=== PATIENT | female | born 1990 | race African-American/Black ===

== ENCOUNTER 2017-01-27 04:41 | Emergency (ER) | payer OTHER ==
[~2017-01-27] VITALS: Ht 165.1 cm; Wt 71.7 kg
--- NOTE | ~2017-01-27 | EKG ---
PATIENT: PEDRO PABLO MONTGOMERY UNIT #: [id number] Ventricular Rate: 72 BPM Atrial Rate: 72 BPM P-R Interval: 162 ms QRS Duration: 78 ms Q-T Interval: 366 ms QTC Calculation(Bezet): 400 ms P [place]: 77 degrees Calculated R [place]: 81 degrees Calculated T [place]: 75 degrees Diagnosis Line: Normal sinus rhythm with sinus arrhythmia Diagnosis Line: Normal ECG Diagnosis Line: No previous ECGs available Diagnosis Line: Confirmed by OBEY MANCINI MD ([id number]) on Diagnosis Line: 01/28/2017 7:31:19 AM INTERPRETING MD: ADDIS SURESH
--- NOTE | ~2017-01-27 | CT16 ---
[facility] A Service of [facility] RADIOLOGY TEXT RESULTS PATIENT: PEDRO PABLO MONTGOMERY LOCATION: [facility] : [birth year] UNIT #: [id number] AGE: [address]: Chance Daniel MD SEX: F ORDER DR: [id number] [facility] [address] [place], [place] [address] [id number] E MR#: [id number] Acc #: [id number] NAME: PEDRO PABLO MONTGOMERY : 1990 SEX: F STUDY DATE/TIME: 01/27/2017 7:59 UNIT: [facility] ROOM: STUDY DESCRIPTION: CT Angio Chest for PE Attending Physician: Chance Daniel M.D. Ordering Physician: Chance Daniel M.D. Primary Care Physician: No Primary Care Physician MEDICAL IMAGING REPORT This report is preliminary unless electronic signature is present EXAM Chest CTA, 01/27/17 INDICATIONS Chest pain and shortness of air that started today. TECHNIQUE Axial images were obtained through the chest following IV contrast administration. 3-D reformats were obtained. No comparison. This CT exam was performed with one or more of the following radiation dose reduction techniques: automatic exposure control, adjustment of mA and/or kV according to patient size, and iterative reconstruction. FINDINGS There is no pulmonary embolism or aortic dissection. No pleural or pericardial effusion. No adenopathy. The lungs are clear. Upper abdomen is unremarkable. IMPRESSION No pulmonary embolism or aortic dissection. Normal chest CT. Dictated by... Andrew Badillo Jr., M.D. THIS IS AN ELECTRONICALLY VERIFIED REPORT Andrew Badillo Jr., M.D. at 01/27/2017 5:05 PM WALTER/rachel TD: 01/27/2017 14:05 JOB #: [id number] [facility] A [facility] of [facility] RADIOLOGY TEXT RESULTS PATIENT: PEDRO PABLO MONTGOMERY LOCATION: [facility] : [birth year] UNIT #: [id number] AGE: [address]: Chance Daniel MD SEX: F ORDER DR: MEDICAL IMAGING REPORT Page 1 of 1 COPY
--- NOTE | ~2017-01-27 | CR72 ---
[facility] A Service of [facility] RADIOLOGY TEXT RESULTS PATIENT: PEDRO PABLO MONTGOMERY LOCATION: [facility] : [birth year] UNIT #: [id number] AGE: [address]: Chance Daniel MD SEX: F ORDER DR: [id number] [facility] [address] [place], [place] [address] [id number] E MR#: [id number] Acc #: [id number] NAME: PEDRO PABLO MONTGOMERY : 1990 SEX: F STUDY DATE/TIME: 01/27/2017 5:51 UNIT: [facility] ROOM: STUDY DESCRIPTION: CR Chest Single View Portable Attending Physician: Chance Daniel M.D. Ordering Physician: Cynthia Corado A.P.R.N. Primary Care Physician: No Primary Care Physician MEDICAL IMAGING REPORT This report is preliminary unless electronic signature is present EXAM Portable chest, 01/27/2017. HISTORY Chest pain and short of breath for a week. FINDINGS Portable view of the chest was obtained. The heart size and vascularity are normal, and the lungs are clear. The bones are unremarkable. IMPRESSION No active disease. Dictated by... Phillip Hallman M.D. THIS IS AN ELECTRONICALLY VERIFIED REPORT Phillip Hallman M.D. at 01/27/2017 2:14 PM SANDRA/geri TD: 01/27/2017 12:21 JOB #: [id number] MEDICAL IMAGING REPORT Page 1 of 1 COPY
[~2017-01-27 04:41] MED LIST: BACTRIM DS TABL1 TA1 PO; PYRIDIUM PO
[2017-01-27 05:44] LABS: BASOPHIL% 0.4 % (0-2.5); DIFF IND NO; EOSINOPHIL% 0.5 % (0.0-7.0); HEMATOCRIT 38.6 % (35.0-45.0); HEMOGLOBIN 12.8 gm/dL (12.0-16.0); LYMPHOCYTE# 3.9 X10e3 (1.0-3.5); LYMPHOCYTE% 48.4 % (17.0-45.0); MEAN CELL VOLUME 74.9 FL (83-96); MEAN CORPUSCULAR HEMOGLOBIN 24.8 PG (28-34); MEAN CORPUSCULAR HGB CONC 33.1 g/dL (30-36); MEAN PLATELET VOLUME 8.7 FL (6.5-11.5); MONOCYTE# 0.6 X10e3 (0-1.0); MONOCYTE% 6.9 % (3.0-12.0); NEUTROPHIL# 3.5 X10e3 (1.5-7.1); NEUTROPHIL% 43.8 % (40-75); PLATELET COUNT 273 X10e3 (140-420); RED BLOOD COUNT 5.15 X10e (3.90-5.30); RED CELL DISTRIBUTION WIDTH 13.5 % (11.0-15.5)
[2017-01-27 05:54] LABS: POC - CKMB <1.0 ng/mL (0.0-7.9); POC - TROPONIN <0.05 ng/mL (<=0.05)
[2017-01-27 05:58] LABS: PROTHROMBIN TIME (PATIENT) 10.8 SECONDS (10.0-11.7)
[2017-01-27 06:03] LABS: AMPHETAMINE NEG (NEG); BARBITURATES NEG (NEG); BENZODIAZEPINES NEG (NEG); COCAINE NEG (NEG); MARIJUANA NEG (NEG); OPIATES NEG (NEG); TRICYCLIC ANTIDEPRESSANTS NEG (NEG); U METHADONE NEG (NEG)
[2017-01-27 06:15] LABS: BILIRUBIN, DIRECT 0.1 mg/dL (0.0-0.2); BILIRUBIN,INDIRECT 0.2 mg/dL (0.0-0.9); BILIRUBIN,TOTAL 0.3 mg/dL (0.2-2.0); BUN/CREATININE RATIO 7.14; CALCIUM SERUM 9.1 mg/dL (8.4-10.2); CREATININE SERUM 0.7 mg/dL (0.6-1.4); GLOM FILT RATE Estimated 138.6 mL/min (>60); POTASSIUM 3.4 mmol/L (3.5-5.1); PROTEIN TOTAL SERUM 7.7 g/dL (6.0-8.3)
[2017-01-27 07:27] LABS: POC - CKMB <1.0 ng/mL (0.0-7.9); POC - TROPONIN <0.05 ng/mL (<=0.05)
== END 2017-01-27 09:10 | disposition home or self-care (01) ==
LOC: CED 04:41
PROVIDERS: Emergency Medicine; Nurse Practitioner
DX: R07.9 Chest pain, unspecified (principal); F17.210 Nicotine dependence, cigarettes, uncomplicated
CPT/HCPCS: 36415; 71010; 71275; 80048; 80076; 80307; 82553; 84484; 84703; 85025; 85379; 85610; 85730; 93005; 99285; Q9967